=== PATIENT | male | born 2000 | race Caucasian/White ===

== ENCOUNTER 2020-06-06 16:19 | Emergency (ER) | payer OTHER ==
--- NOTE | 2020-06-06 17:45 | ULT ---
TESTICULAR ULTRASOUND: 06/06/20 HISTORY: Testicular injury four days ago with pain. Real time imaging of the right and left testis were performed. The right testicle measures 4.6 and th e left 4.3 cm in size. No testicular masses. Right and left epididymal regions are unremarkable with the exception of a small 2 mm left epididymal cyst. Very small bilateral hydroceles are present. DOPPLER EVALUATION WITH SPECTRAL ANALYSIS: Normal flow is shown to both testes. IMPRESSION: No evidence of acute injury. POS: [id number]
[2020-06-06 18:45] LABS: Bilirubin Negative (Negative); Blood, Urine Negative (Negative); Clarity Clear (Clear); Glucose, Urine (Dipstick) Normal (Negative); Ketone, Urine Negative (Negative); Leukocyte Negative Leu/uL (Negative); Nitrite Negative (Negative); Protein, Urine (Dipstick) Negative (Neg-Trace); Specific Gravity, Urine 1.017 (1.002-1.036); Urobilinogen Normal mg/dL (Less than 2); pH, Urine 6.5 (5.0-9.0)
== END 2020-06-06 19:02 | disposition home or self-care (01) ==
LOC: ERS 16:19
DX: N50.811 Right testicular pain (principal); N50.812 Left testicular pain; W50.0XXA Accidental hit or strike by another person, initial encounter
CPT/HCPCS: 76870; 81003; 93976

== ENCOUNTER 2020-12-27 17:00 | Emergency (ER) | payer OTHER ==
[2020-12-27] MEDS ORDERED: Ondansetron ODT 4 MG TAB ONE (17:37)
== END 2020-12-27 18:08 | disposition home or self-care (01) ==
LOC: ERS 17:00
DX: S09.90XA Unspecified injury of head, initial encounter (principal); R11.0 Nausea; K21.9 Gastro-esophageal reflux disease without esophagitis; X58.XXXA Exposure to other specified factors, initial encounter
CPT/HCPCS: 70450; Q0162